=== PATIENT | male | born 1975 | race Caucasian/White ===

== ENCOUNTER 2019-06-09 17:05 | Emergency (ER) | payer OTHER ==
[~2019-06-09] VITALS: Ht 180.3 cm; Wt 112.5 kg
[2019-06-09] MEDS ORDERED: LOSARTAN-HCTZ1 EAC1 PO (17:22)
== END 2019-06-09 21:49 | disposition home or self-care (01) ==
LOC: ER 17:05
DX: R07.89 Other chest pain (principal); R51 Headache